=== PATIENT | female | born 1965 | race Caucasian/White ===

== ENCOUNTER 2024-02-07 19:03 | Emergency (ER) | payer OTHER, SELFPAY ==
[2024-02-07 19:06] VITALS: BP 163/91
[2024-02-07 19:33] LABS: % Basophils 1.2 % (0-2); % Eosinophils 2.6 % (0-6); % Immature Granulocytes 0.3 % (0-0.5); % Lymphocytes 28.3 % (20.5-51.1); % Monocytes 6.3 % (1.7-9.3); % Neutrophils 61.3 % (42.2-75.2); Absolute Basophils 0.1 10^3/uL (0-0.2); Absolute Eosinophils 0.2 10^3/uL (0-0.7); Absolute Lymphocytes 2.2 10^3/uL (1.2-3.4); Absolute Monocytes 0.5 10^3/uL (0.1-0.6); Absolute Neutrophils 4.7 10^3/uL (1.4-6.5); Hematocrit 41.6 % (37.0-47.0); Hemoglobin 14.4 g/dL (12.0-16.0); Mean Corp Hgb Conc. 34.6 g/dL (33.0-37.0); Mean Corpuscular Volume 80.9 fL (81.0-99.0); Mean Platelet Volume 9.3 fL (7.4-10.4); Nucleated Red Blood Cells % 0 %; Platelet Count 247 10^3/uL (130-400); Red Blood Cell Count 5.14 10^6/uL (4.20-5.40); Red Cell Dist. Width 12.9 % (11.5-14.5); White Blood Cell Count 7.6 10^3/uL (4.8-10.8)
--- NOTE | 2024-02-07 19:56 | ED.GENMED ---
History of Present Illness
General
Chief Complaint: Abdominal Pain
Source: patient and spouse
Exam Limitations: none
Time Seen by Provider: 02/07/24 19:33
Nursing documentation reviewed up to this point in time: agreed with except (left sided chest wall pain, under breast)
History of Present Illness
History of Present Illness:
58-year-old female left-sided chest pain sharp worse with movement under her breast, no nausea or vomiting no fever chills she had a mammogram apparently had a cyst or lymph node also thinks her breast got stuck in her nightgown could have pulled on
her right ribs apparently when asked if she feels short of breath she states she did feel short of breath when visiting her daughter recently but does not feel short of breath going up steps no hemoptysis no calf pain no rash or skin changes at the
site under her breast
Past History
Past History
ED Past Medical History: Hypothyroidism
Social History
Tobacco: Non-smoker
Alcohol: None
Drug: None
Personal:
Living: with family
Employment: Employed
Review of Systems
Review of Systems
All Other Systems: Not applicable
Constitutional: Denies fever
Respiratory: Reports trouble breathing; Denies cough
Cardiac: Reports chest pain (chest wall pain)
ABD/GI: Reports no symptoms; Denies abdominal pain or vomiting
: Reports no symptoms
Musculoskeletal: Reports no symptoms
Skin: Reports no symptoms
Neurological: Reports no symptoms
Phy Exam
Physical Exam
Physical Exam:
Physical Exam
General: no apparent distress, not acutely ill
Neck: No jaundice
Heart: Regular
Lungs: no acute respiratory distress. clear bilaterally point tender in the left upper ribs under the breast
Abdomen: Nontender
Neuro: alert and oriented. no focal neurological deficits
Skin: no rash
Psychiatric: well kept. interactive and cooperative
Extremities: no edema. no calf tenderness.
Course
Orders/Labs/Results
Orders:
Orders
02/07/24 19:15
Electrocardiogram (*1) Urgent
Reason for Study: Abdominal Pain
EKG- Treatment ONCE
IV Insert/Care/Rem.- Treatment PRN
Straight cath- Treatment ONCE
02/07/24 19:23
Complete Blood Count/With Diff Urgent
Comprehensive Metabolic Panel Urgent
Lipase Urgent
Urinalysis Reflex To Culture Urgent
Date Specimen was Collected: 02/07/24
Time Specimen was Collected: 19:15
Urine Microscopic Reflex Cult Urgent
Urine Culture Urgent
RODRIGO Source: U
Specimen Description:
Date Specimen was Collected: 02/07/24
Time Specimen was Collected: 19:15
02/07/24 19:24
Troponin I Urgent
Comment: .
02/07/24 19:51
CT Chest Pe Study Urgent
Comment:
Reason For Exam: left sided pleurisy
02/07/24 19:52
0.9% Sodium Chloride 1000 ml [Nss] 1,000 ml IV BOLUS
Ketorolac [Toradol] 30 mg IV NOW STA
Abnormal Lab Results
02/07/24
19:23
MCV 80.9 L fL
(81.0-99.0)
Carbon Dioxide 32 H mmol/L
(22-30)
Urine Ketones Trace A
(Negative)
Leukocyte Esterase Rfl 1+ A
(Negative)
Urine WBC (Reflex) 11-15 A /HPF
(0-5)
Urine Bacteria (Reflex) Few A
(Negative)
02/07/24 19:23
02/07/24 19:23
Vital Signs
Initial and Last Documented VS:
Initial Vital Signs
Temp Pulse Resp BP Pulse Ox
97.7 F 73 20 163/91 98
02/07/24 19:06 02/07/24 19:06 02/07/24 19:06 02/07/24 19:06 02/07/24 19:06
Last Documented Vital Signs
Temp Pulse Resp BP Pulse Ox
97.7 F 80 18 145/70 96
02/07/24 19:06 02/07/24 20:00 02/07/24 20:00 02/07/24 20:00 02/07/24 20:00
MDM/Problems Addressed
Differential Diagnosis Includes:
Strain pleurisy pneumothorax rib fracture PE mass
MDM/Problems Addressed:
Rib pain
Chronic conditions affecting care: HTN
Acute Exacerbation and/or Progression of Chronic Illness: HTN
*Critical Care Note
Total Time (30-74mins, 75-104mins- exclusive of procedures): Not Applicable
Update Note
Update Note:
CAT scan report noted
Per RN patient has no rash or skin changes under her breast
Patient and spouse updated, provided reassurance, patient states she is feeling much better after Toradol
ED Attending Note
-
Portions of this chart may have been created with voice recognition software.� Occasional wrong word or��sound alike� substitutions may have occurred due to the inherent limitations of voice recognition software.
Discharge Plan
Departure
Patient Disposition: Home (Routine Discharge)
Date of Disposition: 02/07/24
Time of Disposition: 22:01
Patient with high blood pressure during this ER visit?: No
Condition: Good
Discharge Problem:
Anterior chest wall pain
Prescriptions:
New
ibuprofen 600 mg tablet
600 mg PO Q6H PRN (Reason: Pain) Qty: 20 0RF
No Action
levothyroxine [Synthroid] 50 mcg Tablet
50 mcg PO DAILY
hydrochlorothiazide
25 mg PO DAILY
Referrals:
Marj Campa DO [Family Provider] -
Interventions
Interventions:
*Risk Screen - Suicide Last Done: 02/07/24 19:06
*General Assessment Last Done: 02/07/24 19:06
*Neglect/Abuse Screening Last Done: 02/07/24 19:06
ED- Fall Risk Assessment Last Done: 02/07/24 19:06
*ED COVID-19 Vaccine History Last Done: 02/07/24 19:06
YO-Ycnmfe-Ihebidvtmb Assessment Last Done: 02/07/24 21:38
Discharge Date and Time
Print Language: BENINESE
[2024-02-07 19:58] LABS: Troponin I < 0.012 ng/ml
[2024-02-07 20:00] VITALS: BP 145/70
[2024-02-07 20:05] VITALS: BMI 31.2
[2024-02-07 20:14] LABS: ALT (SGPT) 18 U/L (0-35); AST (SGOT) 26 U/L (14-36); Alkaline Phosphatase 107 U/L (38-126); Blood Urea Nitrogen 15 mg/dl (7-17); Calcium 9.7 mg/dl (8.4-10.2); Carbon Dioxide 32 mmol/L (22-30); Chloride 103 mmol/L (98-107); Estimated Creatinine Clearance 103 ml/min; Glucose 88 mg/dl (70-99); Lipase 133 U/L (23-300); Potassium 4.1 mmol/L (3.5-5.1); Sodium 141 mmol/L (135-145); Total Bilirubin 0.8 mg/dl (0.2-1.3); Total Protein 6.7 g/dl (6.3-8.2); eGFR > 60.00
[2024-02-07] MEDS: NSS 1000 IV (20:19)
[2024-02-07] MEDS: TORADOL 30 MG IV (20:21)
[2024-02-07 21:30] LABS: Urine Albumin Negative (Neg - Trace); Urine Bilirubin Negative (Negative); Urine Character Slightly Cloudy (Clear); Urine Color Yellow; Urine Glucose Negative (Negative); Urine Ketone Trace (Negative); Urine Leukocyte 1+ (Negative); Urine Nitrite Negative (Negative); Urine Occult Blood Negative (Negative); Urine Specific Gravity 1.015 (<1.030); Urine Urobilinogen Negative (Neg - 1+)
[2024-02-07 21:38] LABS: Urine Bacteria Few (Negative); Urine Squamous Cell >30 /LPF (Few)
[2024-02-07 21:39] LABS: Urine Red Blood Cell 0-2 /HPF (0-2)
== END 2024-02-07 22:29 | disposition home or self-care (01) ==
LOC: EMR 19:03
PROVIDERS: EMERGENCY PHYSICIAN Emergency Medicine; FAMILY PHYSICIAN Family Medicine
DX: R07.89 Other chest pain (principal); E03.9 Hypothyroidism, unspecified; I10 Essential (primary) hypertension; Z79.899 Other long term (current) drug therapy
CPT/HCPCS: 99285; 96374; 96361; 71275; 80053; 81003; 81015; 83690; 84484; 85025; 87086; 93005; Q9967